=== PATIENT | female | born 1965 | race Caucasian/White ===

== ENCOUNTER 2018-03-11 14:08 | Emergency (ER) | payer OTHER ==
[~2018-03-11] VITALS: Ht 177.8 cm; Wt 68.5 kg
== END 2018-03-11 15:11 | disposition home or self-care (01) ==
LOC: FSED 14:08
DX: L02.413 Cutaneous abscess of right upper limb (principal); I10 Essential (primary) hypertension
CPT/HCPCS: 99283

== ENCOUNTER 2018-06-06 13:35 | Emergency (ER) | payer OTHER ==
[~2018-06-06] VITALS: Ht 177.8 cm; Wt 68.5 kg
--- OUTSIDE RECORDS SUMMARY | 2018-06-06 13:38 | XMS REPORT ---
[facility] Address Unknown Phone Unavailable Care Team Providers Care Career Development Coordinator Name Role Phone NIKITA CURRY Unavailable Unavailable Problems This patient has no known problems. Allergies, Adverse Reactions, Alerts This patient has no known allergies or adverse reactions. Medications This patient has no known medications. Results Test Description Test Time Test Comments Text Results Atomic Results Result Comments HEMOGLOBIN A1C 2018-01-11 13:30:00 HEMOGLOBIN A1C (BEAKER) (test aiem=106) 5.6 % 4.3-6.1 TSH/FREE T4 IF [id number] 12:38:00* Test Item Value Reference Range Comments THYROID STIMULATING HORMONE (BEAKER) (test ofev=152) 1.06 uIU/mL 0.35-4.94 CBC W/PLT COUNT & AUTO [id number] 12:06:00* Test Item Value Reference Range Comments WHITE BLOOD CELL COUNT (BEAKER) (test urtg=739) 5.5 K/ L 3.5-10.5 RED BLOOD CELL COUNT (BEAKER) (test yrmv=597) 4.65 M/ L 3.93-5.22 HEMOGLOBIN (BEAKER) (test jyjw=123) 14.8 GM/DL 11.2-15.7 HEMATOCRIT (BEAKER) (test rdft=695) 46.6 % 34.1-44.9 MEAN CORPUSCULAR VOLUME (BEAKER) (test gsvy=061) 100.2 fL 79.4-94.8 MEAN CORPUSCULAR HEMOGLOBIN (BEAKER) (test ujcm=603) 31.8 pg 25.6-32.2 MEAN CORPUSCULAR HEMOGLOBIN CONC (BEAKER) (test knto=360) 31.8 GM/DL 32.2-35.5 RED CELL DISTRIBUTION WIDTH (BEAKER) (test trjs=220) 12.5 % 11.7-14.4 PLATELET COUNT (BEAKER) (test hzdp=847) 184 K/CU MM 150-450 MEAN PLATELET VOLUME (BEAKER) (test gnjq=428) 9.2 fL 9.4-12.3 NUCLEATED RED BLOOD CELLS (BEAKER) (test eojw=352) 0 /100 WBC 0-0 NEUTROPHILS RELATIVE PERCENT (BEAKER) (test ndbf=361) 43 % LYMPHOCYTES RELATIVE PERCENT (BEAKER) (test ovrt=686) 45 % MONOCYTES RELATIVE PERCENT (BEAKER) (test kadq=155) 6 % EOSINOPHILS RELATIVE PERCENT (BEAKER) (test iddh=422) 5 % BASOPHILS RELATIVE PERCENT (BEAKER) (test xvhf=040) 1 % NEUTROPHILS ABSOLUTE COUNT (BEAKER) (test mduo=580) 2.37 K/ L 1.56-6.13 LYMPHOCYTES ABSOLUTE COUNT (BEAKER) (test zkyo=366) 2.47 K/ L 1.18-3.74 MONOCYTES ABSOLUTE COUNT (BEAKER) (test dnzw=828) 0.32 K/ L 0.24-0.36 EOSINOPHILS ABSOLUTE COUNT (BEAKER) (test fahr=138) 0.25 K/ L 0.04-0.36 BASOPHILS ABSOLUTE COUNT (BEAKER) (test nsyc=472) 0.04 K/ L 0.01-0.08 IMMATURE GRANULOCYTES-RELATIVE PERCENT (BEAKER) (test qjkc=1591) 0 % 0-1 LIPID [id number] 12:01:00* Test Item Value Reference Range Comments TRIGLYCERIDES (BEAKER) (test thzx=723) 71 mg/dL CHOLESTEROL (BEAKER) (test mtsw=603) 187 mg/dL HDL CHOLESTEROL (BEAKER) (test ewzg=167) 65 mg/dL LDL CHOLESTEROL CALCULATED (BEAKER) (test zubf=299) 108 mg/dL Triglyceride Reference Range: Low Risk <150 Borderline 150-199 High Risk 200-499 Very High Risk >=500Cholesterol Reference Range: Low Risk <200 Borderline 200-239 High Risk >240HDL Cholesterol Reference Range: Low Risk >=60 High Risk <40LDL Cholesterol Reference Range: Optimal <100 Near Optimal 100-129 Borderline 130-159 High 160-189 Very High >=190 COMPREHENSIVE METABOLIC [id number] 12:01:00* Test Item Value Reference Range Comments TOTAL PROTEIN (BEAKER) (test qeis=071) 7.8 gm/dL 6.0-8.3 ALBUMIN (BEAKER) (test bchg=0049) 4.3 g/dL 3.5-5.0 ALKALINE PHOSPHATASE (BEAKER) (test thqx=294) 72 U/L 40-150 BILIRUBIN TOTAL (BEAKER) (test rmpd=893) 0.5 mg/dL 0.2-1.2 SODIUM (BEAKER) (test hjuo=280) 137 meq/L 136-145 POTASSIUM (BEAKER) (test pech=346) 4.4 meq/L 3.5-5.1 CHLORIDE (BEAKER) (test ndol=625) 102 meq/L 98-107 CO2 (BEAKER) (test ghoa=185) 29 meq/L 22-29 BLOOD UREA NITROGEN (BEAKER) (test rbcu=273) 18 mg/dL 7-21 CREATININE (BEAKER) (test auoc=848) 0.84 mg/dL 0.57-1.25 GLUCOSE RANDOM (BEAKER) (test ubom=890) 75 mg/dL 70-105 CALCIUM (BEAKER) (test sfbk=343) 9.4 mg/dL 8.4-10.2 AST (SGOT) (BEAKER) (test uopv=425) 21 U/L 5-34 ALT (SGPT) (BEAKER) (test fuaf=433) 14 U/L 6-55 EGFR (BEAKER) (test awbb=3294) 71 mL/min/1.73 sq m ESTIMATED GFR IS NOT ACCURATE CREATININE CLEARANCE IN PREDICTING GLOMERULAR FILTRATION RATE. ESTIMATED GFR IS NOT APPLICABLE FOR DIALYSIS PATIENTS. URINALYSIS W/ [id number] 11:48:00* Test Item Value Reference Range Comments COLOR (BEAKER) (test gsin=933) Yellow CLARITY (BEAKER) (test vufs=751) Clear SPECIFIC GRAVITY UA (BEAKER) (test yilh=026) 1.015 1.001-1.035 PH UA (BEAKER) (test uiqw=356) 5.5 5.0-8.0 PROTEIN UA (BEAKER) (test xwrd=957) Negative Negative GLUCOSE UA (BEAKER) (test zhcc=069) Negative Negative KETONES UA (BEAKER) (test rqzd=993) Negative Negative BILIRUBIN UA (BEAKER) (test zqlb=440) Negative Negative BLOOD UA (BEAKER) (test qmba=405) Negative Negative NITRITE UA (BEAKER) (test ltnb=928) Negative Negative LEUKOCYTE ESTERASE UA (BEAKER) (test tjrp=351) Negative Negative UROBILINOGEN UA (BEAKER) (test chsb=011) 0.2 mg/dL 0.2-1.0 RBC UA (BEAKER) (test nryn=206) < /HPF WBC UA (BEAKER) (test xgve=023) 1 /HPF BACTERIA (BEAKER) (test tion=869) Many SQUAMOUS EPITHELIAL (BEAKER) (test tehi=728) 4 /HPF SOURCE(BEAKER) (test rlvs=6262)
--- OUTSIDE RECORDS SUMMARY | 2018-06-06 13:38 | XMS REPORT | Continuity of Care Document ---
Author [facility] Address Unknown Phone Unavailable Problems Problem Status Onset Date Classification Date Reported Comments Source ULTRASOUND Active 01/07/2016 [facility] UNK Active 12/21/2015 [facility] DX: SCREENING Active 12/21/2015 [facility] DX: SCREENING Active 12/21/2015 [facility] Elevated glucose Active Diagnosis 12/04/2015 [facility] Abnormal WBC count Active Diagnosis 12/04/2015 [facility] Body mass index of 24.0 to 24.9 in adult Active Problem 02/15/2016 [facility] Serum potassium elevated Active Diagnosis 12/04/2015 [facility] Prediabetes Active Problem 02/15/2016 [facility] Onychomycosis Active Diagnosis 12/20/2015 [facility] Special screening for malignant neoplasms, colon Active Diagnosis 11/19/2015 [facility] Encounter for screening mammogram for malignant neoplasm of breast Active Diagnosis 11/19/2015 [facility] Medications Medication Details Route Status Patient Instructions Ordering Provider Order Date Source Albuterol 0.833 MG/ML / Ipratropium Newton 0.167 MG/ML Inhalant Solution 3 mL, NEB, ONCE, 0 Refill(s) Active 01/06/2016 [facility] Albuterol 0.833 MG/ML / Ipratropium [place] 0.167 MG/ML Inhalant Solution 3 mL, Route: NEB, Drug Form: SOLN, Dosing Weight 78.864, kg, ONCE, STAT, Start date: 01/06/16 8:06:00 CDT, Stop date: 01/06/16 8:06:00 CDTNotes: (Same as: Karolina) Inactive 01/06/2016 [facility] Sodium Chloride 0.154 MEQ/ML Injectable Solution 1,000 mL, Rate: 25 ml/hr, Infuse over: 40 hr, Route: IV, Dosing Weight 78.864 kg, Total Volume: 1,000, Start date: 01/06/16 8:06:00 CDT, Duration: 30 day, Stop date: 02/05/16 8:05:00 CDT Inactive 01/06/2016 [facility] Ibuprofen =2 tab, PO, PRN, 0 Refill(s) Active 01/04/2016 [facility] Lamisil 1 tablet Orally Active 250 MG Orally Once a day Brant 11/16/2015 [facility] Allergies, Adverse Reactions, Alerts Substance Category Reaction Severity Reaction type Status Date Reported Comments Source N.K.D.A. Adverse Reaction Info Not Available Adverse Reaction Active 12/17/2015 [facility] Immunizations Immunization Date Given Site Status Last Updated Comments Source Results Order Name Results Value Reference Range Date Interpretation Comments Source Breast Complete [facility] US Breast Complete [facility] US - BREAST COMPLETE [facility]ERELLE US ULTRASOUND OF BOTH BREASTS AND BOTH AXILLA: 01/20/2016 CLINICAL: Dense breasts abnormal mammogram, mammographic nodule/density. Comparison is made to exam dated: 12/31/2015 mammogram - [facility]. Color flow and real-time ultrasound of both breasts and both axilla were performed. Reed scale images of the real-time examination were reviewed. For both breasts, all 4 quadrants, the retroareolar region and axilla are evaluated in this exam. There is a small benign cyst left breast in the sub-areolar depth that is an incidental finding. There also is a small benign cyst right breast at 9 o'clock that is an incidental finding. No abnormalities were seen sonographically in either axilla. IMPRESSION: BENIGN There is no suspicious sonographic abnormality seen in the right breast to correspond with the initial mammographic density which is consistent with normal fibroglandular tissue. There is no sonographic evidence of malignancy. Return to annual mammogram screening schedule is recommended. The results were reviewed with the patient. SUMMARY: The patient would likely benefit from 3D tomosynthesis screening mammograms given her breast density, which can be performed at [facility]. Bea brandont/:01/20/2016 13:16:20 Mastic Worker: Kia Stock, [facility] This exam was dictated and interpreted by [id number] for [facility]. letter sent: Normal exam Ultrasound BI-RADS: 2 Benign 01/20/2016 - - Read by: Bea Goodwin MD Dictated Date/time: 01/20/16 13:16 Electronically Signed by: Bea Goodwin MD 01/20/16 13:16 FINAL REPORT [facility] URINE CHEM U Preg Negative (01/04/16 8:56 AM) Negative 01/04/2016 [facility] Digital Mammo Screening [facility]lle MA Digital Mammo Screening Cherelle MA - DIGITAL MAMMO SCREENING CHERELLE MA BILATERAL DIGITAL SCREENING MAMMOGRAM WITH CAD: 12/31/2015 CLINICAL: Other Screening Mammogram. Current study was evaluated with a Computer Aided Detection (CAD) system. Exam is read without the benefit of comparison films. Patient states their prior mammogram was performed over 10 years ago and are no longer available. The tissue of both breasts is heterogeneously dense, which could obscure detection of small masses. There are benign appearing calcifications in both breasts. There is a focal asymmetry in the right breast at 11 o'clock posterior depth. No other significant masses, calcifications, or other findings are seen in either breast. IMPRESSION: INCOMPLETE: NEEDS ADDITIONAL IMAGING EVALUATION The focal asymmetry in the right breast is indeterminate. An ultrasound is recommended unless previous films are received and show no significant interval change. Bilateral breast ultrasound is recommended due to breast density. SUMMARY: Prior mammograms would be of added benefit to document shellfish checker stability. This aids in establishing benignity. The patient should make additional efforts to locate their prior exams. An addendum will be made if additional films are provided. Tyra Dale M.D. ap/:01/04/2016 10:29:08 Mastic Worker: Susana Kay, [facility] This exam was dictated and interpreted by [id number] for [facility]. letter sent: Additional Imaging Mammogram BI-RADS: 0 Indeterminate 12/31/2015 - - Read by: Tyra Dale MD Dictated Date/time: 01/04/16 10:29 Electronically Signed by: Tyra Dale MD 01/04/16 10:29 FINAL REPORT [facility] Vital Signs Vital Sign Value Date Comments Source Respitory Rate 13 01/06/2016 [facility] Systolic (mm Hg) 121 01/06/2016 [facility] Diastolic (mm Hg) 75 01/06/2016 [facility] Respitory Rate 18 01/06/2016 [facility] Systolic (mm Hg) 126 01/06/2016 [facility] Diastolic (mm Hg) 78 01/06/2016 [facility] Respitory Rate 13 01/06/2016 [facility] Systolic (mm Hg) 132 01/06/2016 [facility] Diastolic (mm Hg) 78 01/06/2016 [facility] Heart Rate 59 01/04/2016 [facility] Temperature Oral (F) 97.6 F 01/04/2016 [facility] Weight 78.864 01/04/2016 [facility] BMI Calculated 24.95 01/04/2016 [facility] Height 177.8 cm 01/04/2016 [facility] Weight 167 12/17/2015 [facility] Height 70 12/17/2015 [facility] Heart Rate 66 12/17/2015 [facility] Diastolic (mm Hg) 82 12/17/2015 [facility] Systolic (mm Hg) 118 12/17/2015 [facility] Weight 171 11/16/2015 [facility] Height 70 11/16/2015 [facility] Diastolic (mm Hg) 72 11/16/2015 [facility] Systolic (mm Hg) 118 11/16/2015 [facility] Encounters Location Location Details Encounter Type Encounter Number Reason For Visit Attending Provider ADM Date DC Date Status Source [facility] [id number] 11/16/2015 11/16/2015 [facility] [id number] 11/16/2015 11/16/2015 [facility] [id number] 11/16/2015 11/16/2015 [facility] [id number] 11/16/2015 11/16/2015 [facility] Needs call back from Medical Staff [id number] 12/03/2015 12/03/2015 [facility] Needs call back from Medical Staff [id number] 12/03/2015 12/03/2015 [facility] Needs call back from Medical Staff [id number] 12/03/2015 12/03/2015 [facility] 4 week follow up [id number] 12/17/2015 12/17/2015 [facility] 4 week follow up [id number] 12/17/2015 12/17/2015 [facility] [id number] Paula Rosario 12/31/2015 01/01/2016 [facility]patient [id number] Femi Hays 01/06/2016 01/06/2016 [facility] [id number] 01/13/2016 01/13/2016 [facility] [id number] Paula Abraham 01/20/2016 01/21/2016 [facility] Procedures Procedure Code Date Perfomer Comments Source Operation [id number] [facility]
--- OUTSIDE RECORDS SUMMARY | 2018-06-06 13:38 | XMS REPORT | Clinical Summary ---
Author Author [facility] Address Unknown Phone Unavailable Care Team Providers Care Interior Painter Name Role Phone Pcp, No PCP Unavailable Allergies No Known Allergies Medications End Date Status Medication Sig Dispensed Refills Start Date Active ibuprofen (ADVIL,MOTRIN) Take 400 mg 0 200 MG tablet by mouth every 6 (six) hours as needed for Pain. Active melatonin 1 mg Tab Take 1 mg by 0 mouth every night as needed. 05/13/2019 Active fosinopril-hydrochlorothi Take 1 tablet 90 tablet 0 azide (MONOPRIL-HCT) by mouth 8 10-12.5 mg per tablet daily. 01/30/2018 Discontinued fosinopril-hydrochlorothi Take 1 tablet 30 tablet 11 azide (MONOPRIL-HCT) by mouth 8 10-12.5 mg per tablet daily. 05/13/2018 Discontinued fosinopril-hydrochlorothi Take 1 tablet 90 tablet 0 azide (MONOPRIL-HCT) by mouth 8 10-12.5 mg per tablet daily. 03/11/2018 sulfamethoxazole-trimetho Take 1 tablet 14 tablet 0 prim (BACTRIM DS) 800-160 (160 mg of 8 mg per tablet trimethoprim total) by mouth 2 (two) times daily for 7 days smx-tmp DS (BACTRIM) 800-160 mg tabs (1tab q12 D10). 03/14/2018 traMADol (ULTRAM) 50 mg Take 1 tablet 30 tablet 0 tablet (50 mg total) 8 by mouth every 6 (six) hours as needed for Pain for up to 10 days. Max Daily Amount: 200 mg Active Problems Not on file Encounters Care Team Description Date Type Specialty Parhizgar, Sundar, MD 05/13/2018 Refill Cardiology Roshan Camargo MD Abscess (Primary Dx) 03/04/2018 Emergency Emergency Medicine Sundar Brunson MD 01/30/2018 Refill Cardiology Sundar Brunson MD Annual physical exam (Primary Dx); Essential hypertension 01/11/2018 Office Visit Cardiology Sundar Brunson MD 01/11/2018 Telephone Cardiology after 06/05/2017 Social History Date Tobacco Use Types Packs/Day Years Used Quit: 10/2017 Former Smoker 10 Smokeless Tobacco: Never Used Alcohol Use Drinks/Week oz/Week Comments Yes occasional Sex Assigned at Date Recorded Not on file Industry Job Start Date Occupation Not on file Not on file Not on file Travel End Travel History Travel Start No recent travel history available. Last Filed Vital Signs Time Taken Vital Sign Reading 03/04/2018 2:20 PM CDT Blood Pressure 162/79 03/04/2018 2:20 PM CDT Pulse 65 03/04/2018 2:20 PM CDT Temperature 36.1 C (97 F) 03/04/2018 2:20 PM CDT Respiratory Rate 20 03/04/2018 12:31 PM CDT Oxygen Saturation 99% - Inhaled Oxygen - Concentration 03/04/2018 12:31 PM CDT Weight 70.3 kg (155 lb) 03/04/2018 12:31 PM CDT Height 177.8 cm (5' 10") 03/04/2018 12:31 PM CDT Body Mass Index 22.24 Plan of Treatment Health Maintenance Due Date Last Done Comments INFLUENZA VACCINE 04/01/2018 Procedures Comments Procedure Name Priority Date/Time Associated Diagnosis [place] DRAIN SKIN ABSCESS Routine 03/05/2018 SIMPLE 9:02 AM CDT CBC W/PLT COUNT & AUTO STAT 01/11/2018 Annual physical exam DIFFERENTIAL 11:32 AM CDT URINALYSIS W/ MICROSCOPIC STAT 01/11/2018 Annual physical exam 11:32 AM CDT CBC W/PLT COUNT & AUTO STAT 01/11/2018 Annual physical exam DIFFERENTIAL 11:32 AM CDT COMPREHENSIVE METABOLIC STAT 01/11/2018 Annual physical exam PANEL 11:32 AM CDT LIPID PANEL Routine 01/11/2018 Annual physical exam 11:32 AM CDT HEMOGLOBIN A1C Routine 01/11/2018 Annual physical exam 11:32 AM CDT TSH/FREE T4 IF INDICATED Routine 01/11/2018 Annual physical exam 11:32 AM CDT after 06/05/2017 Results * INCISION AND DRAINAGE (03/05/2018 9:02 AM CDT) Narrative Performed At Roshan Camargo MD 03/05/20189:02 AM Incision/Drainage Date/Time: 03/04/2018 1:15 PM Performed by: BYRON EDWARDS Authorized by: ROSHAN CAMARGO Consent: Verbal consent obtained. Risks and benefits: risks, benefits and alternatives were discussed Consent given by: patient Patient understanding: patient states understanding of the procedure being performed Patient consent: the patient's understanding of the procedure matches consent given Procedure consent: procedure consent matches procedure scheduled Relevant documents: relevant documents present and verified Test results: test results available and properly labeled Site marked: the operative site was marked Imaging studies: imaging studies available Patient identity confirmed: verbally with patient and arm band Time out: Immediately prior to procedure a "time out" was called to verify the correct patient, procedure, equipment, product support specialist and site/side marked as required. Type: abscess Body area: upper extremity Location details: right arm Anesthesia: local infiltration (lido 2%) Anesthesia: Local Anesthetic: lidocaine 2% without epinephrine Sedation: Patient sedated: no Scalpel size: 11 Needle gauge: 20 Incision type: single straight Complexity: simple Drainage: purulent andbloody Drainage amount: moderate Wound treatment: wound left open Packing material: 1/4 in iodoform gauze Patient tolerance: Patient tolerated the procedure well with no immediate complications Immediate Post-Procedure Note Date/Time: 03/04/2018 1:55 PM Assistants to the procedure: Other (Comment) (Nessa Edwards CRACKER OFF/ Dr. Roshan Camargo) Pre-procedure diagnosis: Abscess Post-procedure diagnosis: Abscess Procedures Performed: Incision/Drainage Specimens removed: None Estimated blood loss (mL): None Complications: None Type of anesthesia: None Grafts or Implants: None * TSH/Free T4 If Indicated (01/11/2018 11:32 AM CDT) TSH 1.06 0.35 - 4.94 uIU/mL [facility] Specimen Blood Performing Organization Address City/State/Zipcode Phone Number [facility] [address] [place] [address] [facility] * CBC with platelet count + automated diff (01/11/2018 11:32 AM CDT) WBC 5.5 3.5 - 10.5 K/L [facility] RBC 4.65 3.93 - 5.22 M/L [facility] Hemoglobin 14.8 11.2 - 15.7 GM/DL [facility] Hematocrit 46.6 (H) 34.1 - 44.9 % [facility] MCV 100.2 (H) 79.4 - 94.8 fL [facility] MCH 31.8 25.6 - 32.2 pg [facility] MCHC 31.8 (L) 32.2 - 35.5 GM/DL [facility] RDW 12.5 11.7 - 14.4 % [facility] Platelets 184 150 - 450 K/CU MM [facility] MPV 9.2 (L) 9.4 - 12.3 fL [facility] nRBC 0 0 - 0 /100 WBC [facility] % Neutros 43 % [facility] % Lymphs 45 % [facility] % Monos 6 % [facility] % Eos 5 % [facility] % Baso 1 % [facility] # Neutros 2.37 1.56 - 6.13 K/L [facility] # Lymphs 2.47 1.18 - 3.74 K/L [facility] # Monos 0.32 0.24 - 0.36 K/L [facility] # Eos 0.25 0.04 - 0.36 K/L [facility] # Baso 0.04 0.01 - 0.08 K/L [facility] Immature 0 0 - 1 % [facility] Granulocytes-Relative [facility] Specimen Blood Performing Organization Address City/[facility]/Zipcode Phone Number [facility] [address] [place] [address] [facility] * Urinalysis w/ Microscopic (01/11/2018 11:32 AM CDT) Color, UA Yellow [facility] Clarity, UA Clear [facility] Specific [place], UA 1.015 1.001 - 1.035 [facility] pH, UA 5.5 5.0 - 8.0 [facility] Protein, UA Negative Negative [facility] Glucose, UA Negative Negative [facility] Ketones, UA Negative Negative [facility] Bilirubin, UA Negative Negative [facility] Blood, UA Negative Negative [facility] Nitrite, UA Negative Negative [facility] Leukocytes, UA Negative Negative [facility] Urobilinogen, UA 0.2 0.2 - 1.0 mg/dL [facility] RBC, UA <1 /HPF [facility] WBC, UA 1 /HPF [facility] Bacteria, UA Many [facility] Squam Epithel, UA 4 /HPF [facility] Specimen Source [facility] Specimen Urine Performing Organization Address City/[facility]/Zipcode Phone Number [facility] [address] [place], [place] [id number] [facility] * Hemoglobin A1c (01/11/2018 11:32 AM CDT) Hemoglobin A1C 5.6 4.3 - 6.1 % [facility] Specimen Blood Performing Organization Address [facility] Phone Number [facility] [address] [place] [address] [facility] * Lipid panel (01/11/2018 11:32 AM CDT) Triglycerides 71 mg/dL [facility] Cholesterol 187 mg/dL [facility] HDL 65 mg/dL [facility] LDL Calculated 108 mg/dL [facility] Specimen Blood Narrative Performed At Triglyceride Reference Range: [facility] Low Risk <150 [facility] [id number] High Risk 200-499 Very High Risk>=500 Cholesterol Reference Range: Low Risk <200 [id number] High Risk>240 HDL Cholesterol Reference Range: Low Risk >=60 High Risk <40 LDL Cholesterol Reference Range: Optimal<100 Near [id number] Very High >=190 Performing Organization Address City/[facility] Phone Number [facility] [address] [place] [address] [facility] * Comprehensive metabolic panel (01/11/2018 11:32 AM CDT) Protein, Total 7.8 6.0 - 8.3 gm/dL [facility] Albumin 4.3 3.5 - 5.0 g/dL [facility] Alkaline Phosphatase 72 40 - 150 U/L [facility] Total Bilirubin 0.5 0.2 - 1.2 mg/dL [facility] Sodium 137 136 - 145 meq/L [facility] Potassium 4.4 3.5 - 5.1 meq/L [facility] Chloride 102 98 - 107 meq/L [facility] CO2 29 22 - 29 meq/L [facility] BUN 18 7 - 21 mg/dL [facility] Creatinine 0.84 0.57 - 1.25 mg/dL [facility] Glucose 75 70 - 105 mg/dL [facility] Calcium 9.4 8.4 - 10.2 mg/dL [facility] AST 21 5 - 34 U/L [facility] ALT 14 6 - 55 U/L [facility] EGFR 71Comment: ESTIMATED GFR IS mL/min/1.73 sq m [facility] NOT ACCURATE CREATININE [facility] CLEARANCE IN PREDICTING GLOMERULAR FILTRATION RATE. ESTIMATED GFR IS NOT APPLICABLE FOR DIALYSIS PATIENTS. Specimen Blood Performing Organization Address City/State/Zipcode Phone Number [facility] [address] [place] [address] [facility] after 06/05/2017 Insurance Payer Benefit Subscriber ID Type Phone Address Plan / Group [employer]R xxxxxxxxxxx SUPER[employer]
--- OUTSIDE RECORDS SUMMARY | 2018-06-06 13:38 | XMS REPORT ---
Author Author Addy Guo Organization [employer] Address Unknown Phone Unavailable Care Team Providers Care Caddy Master Name Role Phone Addy Guo CP Unavailable Encounters Encounter Location Date WWE/[facility]W [facility] November 16, 2015 Needs call back from Medical Staff [facility] December 03, 2015 Problems Problem Type Condition ICD-9 Code Onset Dates Condition Status Assessment Elevated glucose R73.09 Active Assessment Abnormal WBC count D72.9 Active Problem Body mass index (BMI) of 24.0 to 24.9 in adult Z68.24 Active Assessment Serum potassium elevated E87.5 Active Social History Social History Element Qualifiers Date Reported children . 1 son November 16, 2015 Tobacco Use: . Are you a: former smoker Quit 1 month ago, How many packs per day? less than a half pack, How many years have you smoked? 5-10 November 16, 2015 Use of recreational / street drugs? . Answer: Former User, What drugs did you use? marijuana, cocaine, Frequency: Daily November 16, 2015 Smoke Exposure: . Second Hand Smoke Exposure: No November 16, 2015 Do you have pets? . Status: Yes, Type: dog(s), cat(s) November 16, 2015 Marital Status: . November 16, 2015 Caffeine intake? . Status: Yes, What type: Coffee, Soft Drinks November 16, 2015 Do you exercise? . Answer: Yes, Type: walking November 16, 2015 Do you drink alcohol? . Status: Yes, Type: Wine, Beer, Liquor, How often? Daily November 16, 2015 Occupation: . [employer], self employed November 16, 2015 Summary Purpose [employer] Submission
--- OUTSIDE RECORDS SUMMARY | 2018-06-06 13:38 | XMS REPORT | Summary of Care ---
Author Author [facility] Organization [facility] Address Unknown Phone Unavailable Encounter HQ Piedad_gabriella(FIN) [id number] Date(s): 01/20/16 - 01/20/16 [facility] [address] [place] [address]- [phone] Discharge Disposition: Home or Self Care Attending Physician: Paula Rosario DO Referring Physician: Paula Rosario DO Vital Signs No data available for this section Problem List No data available for this section Allergies, Adverse Reactions, Alerts Substance Reaction Severity Status NKDA Active Medications No data available for this section Results No data available for this section Immunizations No data available for this section Procedures Procedure Date Related Diagnosis Body Site Operation Social History Social History Type Response Substance Abuse Use: Current. Type: Marijuana. Recreational Drug Route: Inhaled. Alcohol Current, Previous treatment: None. Smoking Status Former smoker; Type: Cigarettes; Concerns about tobacco use in household: No; Exposure to Tobacco Smoke None; Cigarette Smoking Last 365 Days Yes; Reg Smoking Cessation Counseling No Assessment and Plan No data available for this section
--- OUTSIDE RECORDS SUMMARY | 2018-06-06 13:38 | XMS REPORT | Summary of Care ---
Author Author [facility] Organization [facility] Address Unknown Phone Unavailable Encounter JOHNSON Sigala(SHANTANU) [id number] Date(s): 01/06/16 - 01/06/16 [facility] [address] [place] [address]- Discharge Disposition: Home Attending Physician: Femi Hays MD Referring Physician: Femi Hays MD Vital Signs 1 2 3 Most recent to oldest [Reference Range]: 177.8 cm (01/04/16 8:49 AM) Height 97.6 DegF (01/04/16 8:49 AM) Temperature Oral [96.4-99.1 DegF] 121/75 mmHg (01/06/16 10:30 AM) 126/78 mmHg (01/06/16 10:15 AM) 132/78 mmHg (01/06/16 10:00 AM) Blood Pressure [90-140/60-90 mmHg] 13 BRMIN *LOW* (01/06/16 10:30 AM) 18 BRMIN (01/06/16 10:15 AM) 13 BRMIN *LOW* (01/06/16 10:00 AM) Respiratory Rate [14-20 BRMIN] 59 bpm *LOW* (01/04/16 8:49 AM) Peripheral Pulse Rate [60-100 bpm] 78.864 kg (01/04/16 8:49 AM) Weight 24.95 m2 (01/04/16 8:49 AM) Body Mass Index Problem List No data available for this section Allergies, Adverse Reactions, Alerts Substance Reaction Severity Status NKDA Active Medications albuterol-ipratropium 2.5-0.5 mg inhalation solution 3 mL, Route: NEB, Drug Form: SOLN, Dosing Weight 78.864, kg, ONCE, STAT, Start d ate: 01/06/16 8:06:00 CDT, Stop date: 01/06/16 8:06:00 CDT Notes: (Same as: Karolina) Start Date: 01/06/16 Stop Date: 01/06/16 Status: Ordered albuterol-ipratropium 2.5-0.5 mg inhalation solution 3 mL, NEB, ONCE, 0 Refill(s) Start Date: 01/06/16 Status: Ordered ibuprofen =2 tab, PO, PRN, 0 Refill(s) Start Date: 01/04/16 Status: Ordered sodium chloride 0.9% 1000 ml INJ 1,000 mL 1,000 mL, Rate: 25 ml/hr, Infuse over: 40 hr, Route: IV, Dosing Weight 78.864 kg , Total Volume: 1,000, Start date: 01/06/16 8:06:00 CDT, Duration: 30 day, Stop date: 02/05/16 8:05:00 CDT Start Date: 01/06/16 Stop Date: 01/06/16 Status: Discontinued Results URINE CHEM Most recent to 1 oldest [Reference Range]: U Preg [Negative] Negative (01/04/16 8:56 AM) Immunizations No data available for this section [...]
--- OUTSIDE RECORDS SUMMARY | 2018-06-06 13:38 | XMS REPORT | Summary of Care ---
Author Author [facility] Organization [facility] Address Unknown Phone Unavailable Encounter HQ Encntr_alias(FIN) [id number] Date(s): 12/31/15 - 12/31/15 [facility] [address] [place] [address]- Discharge Disposition: Home Attending Physician: Paula Rosario DO Referring Physician: Addy Guo Vital Signs No data available for this section Problem List No data available for this section Allergies, Adverse Reactions, Alerts Substance Reaction Severity Status NKDA Active Medications No data available for this section Results No data available for this section Immunizations No data available for this section Procedures No data available for this section Social History No data available for this section Assessment and Plan No data available for this section
--- OUTSIDE RECORDS SUMMARY | 2018-06-06 13:38 | XMS REPORT ---
Author Author Paula Leal [facility] [employer] Address Unknown Phone Unavailable Care Team Providers Care Pyrotechnist Name Role Phone Paula Leal Unavailable Encounters Encounter Location Date [facility] January 13, 2016 WWE/[facility] November 16, 2015 Needs call back from Medical Staff [facility] December 03, 2015 4 week follow up [facility] December 17, 2015 Problems Problem Type Condition ICD-9 Code Onset Dates Condition Status Problem Body mass index (BMI) of 24.0 to 24.9 in adult Z68.24 Active Problem Prediabetes R73.09 Active Social History Social History Element Qualifiers Date Reported children . 1 son December 17, 2015 Tobacco Use: . Are you a: former smoker Quit 1 month ago, How many packs per day? less than a half pack, How many years have you smoked? 5-10 December 17, 2015 Use of recreational / street drugs? . Answer: Former User, What drugs did you use? marijuana, cocaine, Frequency: Daily December 17, 2015 Smoke Exposure: . Second Hand Smoke Exposure: No December 17, 2015 Do you have pets? . Status: Yes, Type: dog(s), cat(s) December 17, 2015 Marital Status: . December 17, 2015 Caffeine intake? . Status: Yes, What type: Coffee, Soft Drinks December 17, 2015 Do you exercise? . Answer: Yes, Type: walking December 17, 2015 Do you drink alcohol? . Status: Yes, Type: Wine, Beer, Liquor, How often? Daily December 17, 2015 Occupation: . [employer], 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, 2015 Summary Purpose [employer] Submission
--- OUTSIDE RECORDS SUMMARY | 2018-06-06 13:38 | XMS REPORT ---
Author Author Addy Guo Organization [employer] Address Unknown Phone Unavailable Care Team Providers Care Meal Grinder Tender Name Role Phone Addy Guo CP Unavailable Allergies, Adverse Reactions, Alerts Substance Reaction Event Type N.K.D.A. Info Not Available Non Drug Allergy Encounters Encounter Location Date WWE/FBW [facility] November 16, 2015 Needs call back from Medical Staff [facility] December 03, 2015 4 week follow up [facility] December 17, 2015 Problems Problem Type Condition ICD-9 Code Onset Dates Condition Status Problem Body mass index (BMI) of 24.0 to 24.9 in adult Z68.24 Active Assessment Prediabetes R73.09 Active Problem Prediabetes R73.09 Active Assessment Onychomycosis B35.1 Active Medications Medication Code System Code Instructions Start Date End Date Status Dosage Lamisil MEDISPAN [address]-98 250 MG Orally Once a day November 16, 2015 Feb 14, 2016 Active 1 tablet Social History Social History Element Qualifiers Date [...] trailer repair, 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, 2015 Family history Qualifier Description Comment Date Reported Maternal Grandmother Comment not available December 17, 2015 Paternal Grandmother Comment not available December 17, 2015 Siblings Comment not available December 17, 2015 Maternal Grandfather Comment not available December 17, 2015 Children Comment not available December 17, 2015 Father Comment not available December 17, 2015 Paternal Grandfather Comment not available December 17, 2015 Mother alive Comment not available December 17, 2015 Other: Comment not available December 17, 2015 Vital Signs Date/Time: December 17, 2015 Weight 167 lbs Height 70 in Cardiac Monitoring Heart Rate 66 /min Blood Pressure Diastolic 82 mm Hg Blood Pressure Systolic 118 mm Hg Summary Purpose [employer]ClinicalWorks Submission
--- OUTSIDE RECORDS SUMMARY | 2018-06-06 13:38 | XMS REPORT ---
Author Author Addy Guo Organization [employer] Address Unknown Phone Unavailable Care Team Providers Care Sales Clerk Food Name Role Phone Addy Guo CP Unavailable Allergies, Adverse Reactions, Alerts Substance Reaction Event Type N.K.D.A. Info Not Available Non Drug Allergy Encounters Encounter Location Date WWE/FBW [facility] November 16, 2015 Problems Problem Type Condition ICD-9 Code Onset Dates Condition Status Assessment Encounter for routine gynecological examination Z01.419 Active Assessment Special screening for malignant neoplasms, colon Z12.11 Active Problem Body mass index (BMI) of 24.0 to 24.9 in adult Z68.24 Active Assessment Onychomycosis B35.1 Active Assessment Encounter for screening mammogram for malignant neoplasm of breast Z12.31 Active Assessment Body mass index (BMI) of 24.0 to 24.9 in adult Z68.24 Active Medications Medication Code System Code Instructions Start Date End Date Status Dosage Lamisil MEDISPAN [address]-89 250 MG Orally Once a day November [...] trailer repair, 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
[2018-06-06] MEDS ORDERED: LIDOCAINE 2%/ EPINEPHRINE 20ML MDV INJ STA (14:47)
[2018-06-06 19:31] VITALS: BP 155/90
== END 2018-06-06 15:40 | disposition home or self-care (01) ==
LOC: FSED 13:35
DX: L02.416 Cutaneous abscess of left lower limb (principal); I10 Essential (primary) hypertension
CPT/HCPCS: 82948; 99284; J2001

== ENCOUNTER 2018-06-10 14:19 | Emergency (ER) | payer OTHER ==
[~2018-06-10] VITALS: Ht 177.8 cm; Wt 68.5 kg
--- OUTSIDE RECORDS SUMMARY | 2018-06-10 14:21 | XMS REPORT | Clinical Summary ---
Author Author AMPARO [facility] Address Unknown Phone Unavailable Care Team Providers Care Sales Inspector Name Role Phone Pcp, No PCP Unavailable [...] Essential hypertension 01/11/2018 Office Visit Cardiology Sundar Brusnon MD 01/11/2018 Telephone Cardiology after 06/09/2017 Social History Date Tobacco Use Types Packs/Day [...] Comments Procedure Name Priority Date/Time Associated Diagnosis ID DRAIN SKIN ABSCESS Routine 03/05/2018 SIMPLE 9:02 [...] Annual physical exam 11:32 AM CDT after 06/09/2017 Results * INCISION AND DRAINAGE (03/05/2018 9:02 [...] to verify the correct patient, procedure, equipment, software support engineer and site/side marked as required. Type: abscess [...] to the procedure: Other (Comment) (Nessa Edwards URBAN SOCIOLOGIST/ Dr. Roshan Camargo) Pre-procedure diagnosis: Abscess Post-procedure diagnosis: Abscess Procedures Performed: Incision/Drainage Specimens removed: None Estimated blood loss (mL): None Complications: None Type of anesthesia: None Grafts or Implants: None * TSH/Free T4 If Indicated (01/11/2018 11:32 AM CDT) TSH 1.06 0.35 - 4.94 uIU/mL [facility] Specimen Blood Performing Organization Address City/State/Zipcode Phone Number [facility] [address] [place] [address] MED[facility]ENTER * CBC with platelet count + automated diff (01/11/2018 11:32 AM CDT) WBC 5.5 3.5 - 10.5 K/L [facility] RBC 4.65 3.93 - 5.22 M/L [facility] Hemoglobin 14.8 11.2 - 15.7 GM/DL [facility] Hematocrit 46.6 (H) 34.1 - 44.9 % [facility] MCV 100.2 (H) 79.4 - 94.8 fL [facility] MCH 31.8 25.6 - 32.2 pg [facility] MCHC 31.8 (L) 32.2 - 35.5 GM/DL [facility] RDW 12.5 11.7 - 14.4 % [facility] Platelets 184 150 - 450 K/CU MM [facility] MPV 9.2 (L) 9.4 - 12.3 fL [facility] nRBC 0 0 - 0 /100 WBC [facility] % Neutros 43 % [facility] % Lymphs 45 % [facility] % Monos 6 % [facility] % Eos 5 % [facility] % Baso 1 % [facility] # Neutros 2.37 1.56 - 6.13 K/L [facility] # Lymphs 2.47 1.18 - 3.74 K/L [facility] # Monos 0.32 0.24 - 0.36 K/L [facility] # Eos 0.25 0.04 - 0.36 K/L [facility] # Baso 0.04 0.01 - 0.08 K/L [facility] Immature 0 0 - 1 % [facility] Granulocytes-Relative [facility] Specimen Blood Performing Organization Address City/[facility]/Zipcode Phone Number [facility] [address] [place] [address] MEDICAL CENTER * Urinalysis w/ Microscopic (01/11/2018 11:32 AM CDT) Color, UA Yellow [facility] Clarity, UA Clear [facility] Specific [place], UA 1.015 1.001 - 1.035 [facility] pH, UA 5.5 5.0 - 8.0 [facility] Protein, UA Negative Negative [facility] Glucose, UA Negative Negative [facility] Ketones, UA Negative Negative [facility] Bilirubin, UA Negative Negative [facility] Blood, UA Negative Negative [facility] Nitrite, UA Negative Negative [facility] Leukocytes, UA Negative Negative [facility] Urobilinogen, UA 0.2 0.2 - 1.0 mg/dL [facility] RBC, UA <1 /HPF [facility] WBC, UA 1 /HPF [facility] Bacteria, UA Many [facility] Squam Epithel, UA 4 /HPF [facility] Specimen Source [facility] Specimen Urine Performing Organization Address City/[facility]/Zipcode Phone Number [facility] [address], [place] [id number] [facility] * Hemoglobin A1c (01/11/2018 11:32 AM CDT) Hemoglobin A1C 5.6 4.3 - 6.1 % [facility] Specimen Blood Performing Organization Address [facility] Phone Number [facility] [address] [place] [address] [facility] * Lipid panel (01/11/2018 11:32 AM CDT) Triglycerides 71 mg/dL [facility] Cholesterol 187 mg/dL [facility] HDL 65 mg/dL [facility] LDL Calculated 108 mg/dL [facility] Specimen Blood Narrative Performed At Triglyceride Reference Range: [facility] Low Risk <150 [facility] [id number] High Risk 200-499 Very High Risk>=500 Cholesterol Reference Range: Low Risk <200 [id number] High Risk>240 HDL Cholesterol Reference Range: Low Risk >=60 High Risk <40 LDL Cholesterol Reference Range: Optimal<100 Near [id number] [id number] Very High >=190 Performing Organization Address City/[facility] Phone Number [facility] [address] [place] [address] [facility] * Comprehensive metabolic panel (01/11/2018 11:32 AM CDT) Protein, Total 7.8 6.0 - 8.3 gm/dL [facility] Albumin 4.3 3.5 - 5.0 g/dL [facility] Alkaline Phosphatase 72 40 - 150 U/L [facility] Total Bilirubin 0.5 0.2 - 1.2 mg/dL [facility] Sodium 137 136 - 145 meq/L [facility] Potassium 4.4 3.5 - 5.1 meq/L [facility] Chloride 102 98 - 107 meq/L [facility] CO2 29 22 - 29 meq/L [facility] BUN 18 7 - 21 mg/dL [facility] Creatinine 0.84 0.57 - 1.25 mg/dL [facility] Glucose 75 70 - 105 mg/dL [facility] Calcium 9.4 8.4 - 10.2 mg/dL [facility] AST 21 5 - 34 U/L [facility] ALT 14 6 - 55 U/L [facility] EGFR 71Comment: ESTIMATED GFR IS mL/min/1.73 sq m [facility] NOT ACCURATE CREATININE [facility] CLEARANCE IN PREDICTING GLOMERULAR FILTRATION RATE. ESTIMATED GFR IS NOT APPLICABLE FOR DIALYSIS PATIENTS. Specimen Blood Performing Organization Address City/State/Zipcode Phone Number [facility] [address] [place] [address] [facility] after 06/09/2017 Insurance Payer Benefit Subscriber ID Type Phone Address Plan / Group [employer] xxxxxxxxxxx SUPERIOR
== END 2018-06-10 15:59 | disposition home or self-care (01) ==
LOC: FSED 14:19
DX: Z48.00 Encounter for change or removal of nonsurgical wound dressing (principal); L02.91 Cutaneous abscess, unspecified
CPT/HCPCS: 99283

== ENCOUNTER 2018-10-16 16:51 | Inpatient (IN) | payer OTHER ==
[~2018-10-16] VITALS: Ht 177.8 cm; Wt 68.3 kg
--- OUTSIDE RECORDS SUMMARY | 2018-10-16 16:54 | XMS REPORT | Continuity of Care Document ---
Author Author [facility] Address Unknown Phone Unavailable Problems Problem Status Onset Date Classification Date Reported Comments Source ULTRASOUND Active 01/07/2016 [facility] DX: SCREENING Active 12/21/2015 [facility] UNK Active 12/21/2015 [facility] DX: SCREENING Active 12/21/2015 [facility] Elevated glucose Active Diagnosis 12/04/2015 [facility] Abnormal WBC count Active Diagnosis 12/04/2015 [facility] Body mass index of 24.0 to 24.9 in adult Active Problem 02/15/2016 [facility] Serum potassium elevated Active Diagnosis 12/04/2015 [facility] Prediabetes Active Problem 02/15/2016 [facility] Special screening for malignant neoplasms, colon Active Diagnosis 11/19/2015 [facility] Onychomycosis Active Diagnosis 12/20/2015 [facility] Encounter for screening mammogram for malignant neoplasm of breast Active Diagnosis 11/19/2015 [facility] Medications Medication Details Route Status Patient Instructions Ordering Provider Order Date Source Albuterol 0.833 MG/ML / Ipratropium [place] 0.167 MG/ML Inhalant Solution 3 mL, NEB, ONCE, 0 Refill(s) Active 01/06/2016 [facility] Albuterol 0.833 MG/ML / Ipratropium [place] 0.167 MG/ML Inhalant Solution 3 mL, Route: NEB, Drug Form: SOLN, Dosing Weight 78.864, kg, ONCE, STAT, Start date: 01/06/16 8:06:00 CDT, Stop date: 01/06/16 8:06:00 CDTNotes: (Same as: Karolina) Inactive 01/06/2016 [facility] Sodium Chloride 0.154 MEQ/ML Injectable Solution 1,000 mL, Rate: 25 ml/hr, Infuse over: 40 hr, Route: IV, Dosing Weight 78.864 kg, Total Volume: 1,000, Start date: 01/06/16 8:06:00 CDT, Duration: 30 day, Stop date: 02/05/16 8:05:00 CDT Inactive 01/06/2016 [facility] Ibuprofen =2 tab, PO, PRN, 0 Refill(s) Active 01/04/2016 [facility] Lamisil 1 tablet Orally Active 250 MG Orally Once a day Brant 11/16/2015 [facility] Allergies, Adverse [...] made to exam dated: 12/31/2015 mammogram - [facility]. Color flow and real-time ultrasound of both [...] breast density, which can be performed at [facility]. Bea brandont/:01/20/2016 13:16:20 Metal Tube Cutter: Kia Stock, [facility] This exam was dictated and interpreted by [id number] for [facility]. letter sent: Normal exam Ultrasound BI-RADS: 2 Benign 01/20/2016 - - Read by: Bea Goodwin MD Dictated Date/time: 01/20/16 13:16 Electronically Signed by: Bea Goodwin MD 01/20/16 13:16 FINAL REPORT [facility] URINE CHEM U Preg Negative (01/04/16 8:56 AM) Negative 01/04/2016 [facility] Digital Mammo Screening Cherelle MA Digital Mammo [...] would be of added benefit to document longshore equipment operator stability. This aids in establishing benignity. The patient should make additional efforts to locate their prior exams. An addendum will be made if additional films are provided. Tyra Dale M.D. ap/:01/04/2016 10:29:08 Metal Tube Cutter: Susana Kay, [facility] This exam was dictated and interpreted by [id number] for [facility]. letter sent: Additional Imaging Mammogram BI-RADS: 0 Indeterminate 12/31/2015 - - Read by: Tyra Dale MD Dictated Date/time: 01/04/16 10:29 Electronically Signed by: Tyra Dale MD 01/04/16 10:29 FINAL REPORT [facility] Vital Signs Vital Sign Value Date Comments Source Respitory Rate 13 01/06/2016 [facility] Systolic (mm Hg) 121 01/06/2016 [facility] Diastolic (mm Hg) 75 01/06/2016 [facility] Respitory Rate 18 01/06/2016 [facility] Systolic (mm Hg) 126 01/06/2016 [facility] Diastolic (mm Hg) 78 01/06/2016 [facility] Respitory Rate 13 01/06/2016 [facility] Systolic (mm Hg) 132 01/06/2016 [facility] Diastolic (mm Hg) 78 01/06/2016 [facility] Heart Rate 59 01/04/2016 [facility] Temperature Oral (F) 97.6 F 01/04/2016 [facility] Weight 78.864 01/04/2016 [facility] BMI Calculated 24.95 01/04/2016 [facility] Height 177.8 cm 01/04/2016 [facility] Weight 167 12/17/2015 [facility] Systolic (mm Hg) 118 11/16/2015 [facility] Encounters Location Location Details Encounter Type Encounter Number Reason For Visit Attending Provider ADM Date DC Date Status Source [facility] [id number] 11/16/2015 11/16/2015 [facility] [id number] 11/16/2015 11/16/2015 [facility] [id number] 11/16/2015 11/16/2015 [facility] [id number] 11/16/2015 11/16/2015 [facility] Needs call back from Medical Staff [id number] 12/03/2015 12/03/2015 [facility] Needs call back from Medical Staff [id number] 12/03/2015 12/03/2015 [facility] Needs call back from Medical Staff [id number] 12/03/2015 12/03/2015 [facility] 4 week follow up [id number] 12/17/2015 12/17/2015 [facility] 4 week follow up [id number] 12/17/2015 12/17/2015 [facility] Outpatient [id number] Paula Rosario 12/31/2015 01/01/2016 [facility] [id number] Femi Hays 01/06/2016 01/06/2016 [facility] [id number] 01/13/2016 01/13/2016 [facility] Outpatient [id number] Paula Abraham 01/20/2016 01/21/2016 [facility] Procedures Procedure Code Date Perfomer Comments Source Operation [id number] [facility]
--- OUTSIDE RECORDS SUMMARY | 2018-10-16 16:54 | XMS REPORT | Clinical Summary ---
Author Author AMPARO [facility] Address Unknown Phone Unavailable Care Team Providers Care Stitch Burnisher Name Role Phone Pcp, No PCP Unavailable [...] Sundar Brunson MD 01/11/2018 Telephone Cardiology after 10/15/2017 Social History Date Tobacco Use Types Packs/Day [...] Comments Procedure Name Priority Date/Time Associated Diagnosis [place] DRAIN SKIN ABSCESS Routine 03/05/2018 SIMPLE 9:02 [...] Annual physical exam 11:32 AM CDT after 10/15/2017 Results * INCISION AND DRAINAGE (03/05/2018 9:02 [...] to verify the correct patient, procedure, equipment, application support engineer and site/side marked as required. [...] to the procedure: Other (Comment) (Nessa Edwards MEDICAL SALES CONSULTANT/ Dr. Roshan Camargo) Pre-procedure diagnosis: Abscess Post-procedure diagnosis: Abscess Procedures Performed: Incision/Drainage Specimens removed: None Estimated blood loss (mL): None Complications: None Type of anesthesia: None Grafts or Implants: None * TSH/Free T4 If Indicated (01/11/2018 11:32 AM CDT) TSH 1.06 0.35 - 4.94 uIU/mL [facility] Specimen Blood Performing Organization Address City/State/Zipcode Phone Number [facility] [address] [place] [address] MEDICAL CENTER * CBC with platelet count + automated diff (01/11/2018 11:32 AM CDT) WBC 5.5 3.5 - 10.5 K/L [facility] RBC 4.65 3.93 - 5.22 M/L [facility] Hemoglobin 14.8 11.2 - 15.7 GM/DL [facility] Hematocrit 46.6 (H) 34.1 - 44.9 % [facility] MCV 100.2 (H) 79.4 - 94.8 fL [facility] MCH 31.8 25.6 - 32.2 pg [facility] MCHC 31.8 (L) 32.2 - 35.5 GM/DL [facility] RDW 12.5 11.7 - 14.4 % [facility] Platelets 184 150 - 450 K/CU MM [facility] MPV 9.2 (L) 9.4 - 12.3 fL [facility] nRBC 0 0 - 0 /100 WBC [facility] % Neutros 43 % [facility] % Lymphs 45 % [facility] % Monos 6 % [facility] % Eos 5 % [facility] % Baso 1 % [facility] # Neutros 2.37 1.56 - 6.13 K/L [facility] # Lymphs 2.47 1.18 - 3.74 K/L [facility] # Monos 0.32 0.24 - 0.36 K/L [facility] # Eos 0.25 0.04 - 0.36 K/L [facility] # Baso 0.04 0.01 - 0.08 K/L [facility] Immature 0 0 - 1 % [facility] Granulocytes-Relative [facility] Specimen Blood Performing Organization Address City/[facility]/Zipcode Phone Number [facility] [address] [place] [address] MEDICAL CENTER * Urinalysis w/ Microscopic (01/11/2018 11:32 AM CDT) Color, UA Yellow [facility] Clarity, UA Clear [facility] Specific [place], UA 1.015 1.001 - 1.035 [facility] pH, UA 5.5 5.0 - 8.0 [facility] Protein, UA Negative Negative [facility] Glucose, UA Negative Negative [facility] Ketones, UA Negative Negative [facility] Bilirubin, UA Negative Negative [facility] Blood, UA Negative Negative [facility] Nitrite, UA Negative Negative [facility] Leukocytes, UA Negative Negative [facility] Urobilinogen, UA 0.2 0.2 - 1.0 mg/dL [facility] RBC, UA <1 /HPF [facility] WBC, UA 1 /HPF [facility] Bacteria, UA Many [facility] Squam Epithel, UA 4 /HPF [facility] Specimen Source [facility] Specimen Urine Performing Organization Address City/[facility]/Zipcode Phone Number [facility] [address], [place] [id number] [facility] * Hemoglobin A1c (01/11/2018 11:32 AM CDT) Hemoglobin A1C 5.6 4.3 - 6.1 % [facility] Specimen Blood Performing Organization Address [facility] Phone Number [facility] [address] [place] [address] [facility] * Lipid panel (01/11/2018 11:32 AM CDT) Triglycerides 71 mg/dL [facility] Cholesterol 187 mg/dL [facility] HDL 65 mg/dL [facility] LDL Calculated 108 mg/dL [facility] Specimen Blood Narrative Performed At Triglyceride Reference Range: [facility] Low Risk <150 [facility] [id number] High Risk 200-499 Very High Risk>=500 Cholesterol Reference Range: Low Risk <200 [id number] High Risk>240 HDL Cholesterol Reference Range: Low Risk >=60 High Risk <40 LDL Cholesterol Reference Range: Optimal<100 Near [id number] Fxsu182-124 Very High >=190 Performing Organization Address City/[facility] Phone Number [facility] [address] [place] [address] [facility] * Comprehensive metabolic panel (01/11/2018 11:32 AM CDT) Protein, Total 7.8 6.0 - 8.3 gm/dL [facility] Albumin 4.3 3.5 - 5.0 g/dL [facility] Alkaline Phosphatase 72 40 - 150 U/L [facility] Total Bilirubin 0.5 0.2 - 1.2 mg/dL [facility] Sodium 137 136 - 145 meq/L [facility] Potassium 4.4 3.5 - 5.1 meq/L [facility] Chloride 102 98 - 107 meq/L [facility] CO2 29 22 - 29 meq/L [facility] BUN 18 7 - 21 mg/dL [facility] Creatinine 0.84 0.57 - 1.25 mg/dL [facility] Glucose 75 70 - 105 mg/dL [facility] Calcium 9.4 8.4 - 10.2 mg/dL [facility] AST 21 5 - 34 U/L [facility] ALT 14 6 - 55 U/L [facility] EGFR 71Comment: ESTIMATED GFR IS mL/min/1.73 sq m [facility] NOT ACCURATE CREATININE [facility] CLEARANCE IN PREDICTING GLOMERULAR FILTRATION RATE. ESTIMATED GFR IS NOT APPLICABLE FOR DIALYSIS PATIENTS. Specimen Blood Performing Organization Address City/State/Zipcode Phone Number [facility] [address] [place] [address] [facility] after 10/15/2017 Insurance Payer Benefit Subscriber ID Type Phone Address Plan / Group [employer] xxxxxxxxxxx SUPERIOR
[2018-10-16] MEDS ORDERED: PIPER-TAZ 3.375 GM 50 ML IV ONE (17:15)
[2018-10-16] MEDS ORDERED: VANCOMYCIN 1GM/NS 250 ML 250 ML IV ONE (17:15)
--- NOTE | 2018-10-16 17:28 | Diagnostic Imaging Report ---
Radiographs of the left middle finger - 3 views HISTORY: Pain. Trauma. Infection COMPARISON: None available. FINDINGS: Bones: No acute displaced fracture. Osseous alignment is within normal limits. Joints: Scattered degenerative change. No osseous erosion. Soft tissues: Soft tissue swelling about the third digit. IMPRESSION: Soft tissue swelling about the third digit. No radiopaque foreign body. No osseous erosion Signed by: Dr. Abdirizak Silver M.D. on 10/16/2018 5:24 PM
[2018-10-16] MEDS: SODIUM CHLORIDE 0.9% 1000ML 1,000 ML IV SCH (17:39)
[2018-10-16] MEDS ORDERED: SODIUM CHLORIDE FLUSH 10 ML SYR INJ PRN (17:45)
--- OUTSIDE RECORDS SUMMARY | 2018-10-16 17:54 | XMS REPORT | Clinical Summary ---
Author Author [facility] Address Unknown Phone Unavailable Care Team Providers Care Senior Financial Analyst Name Role Phone Pcp, No PCP Unavailable [...] Comments Procedure Name Priority Date/Time Associated Diagnosis AL DRAIN SKIN ABSCESS Routine 03/05/2018 SIMPLE 9:02 [...] to verify the correct patient, procedure, equipment, user support analyst supervisor and site/side marked as required. Type: abscess [...] to the procedure: Other (Comment) (Nessa Edwards PORTAL ARCHITECT/ Dr. Roshan Camargo) Pre-procedure diagnosis: Abscess Post-procedure diagnosis: Abscess Procedures Performed: Incision/Drainage Specimens removed: None Estimated blood loss (mL): None Complications: None Type of anesthesia: None Grafts or Implants: None * TSH/Free T4 If Indicated (01/11/2018 11:32 AM CDT) TSH 1.06 0.35 - 4.94 uIU/mL [facility] Specimen Blood Performing Organization Address City/State/Zipcode Phone Number [facility] [address] [place] [address] [facility] * CBC with platelet count + automated diff (01/11/2018 11:32 AM CDT) WBC 5.5 3.5 - 10.5 K/L [facility] RBC 4.65 3.93 - 5.22 M/L [facility] Hemoglobin 14.8 11.2 - 15.7 GM/DL [facility] Hematocrit 46.6 (H) 34.1 - 44.9 % [facility] MCV 100.2 (H) 79.4 - 94.8 fL [facility] MCH 31.8 25.6 - 32.2 pg [facility] MCHC 31.8 (L) 32.2 - 35.5 GM/DL [facility] RDW 12.5 11.7 - 14.4 % [facility] Platelets 184 150 - 450 K/CU MM [facility] MPV 9.2 (L) 9.4 - 12.3 fL [facility] nRBC 0 0 - 0 /100 WBC [facility] % Neutros 43 % [facility] % Lymphs 45 % [facility] % Monos 6 % [facility] % Eos 5 % [facility] % Baso 1 % [facility] # Neutros 2.37 1.56 - 6.13 K/L [facility] # Lymphs 2.47 1.18 - 3.74 K/L [facility] # Monos 0.32 0.24 - 0.36 K/L [facility] # Eos 0.25 0.04 - 0.36 K/L [facility] # Baso 0.04 0.01 - 0.08 K/L [facility] Immature 0 0 - 1 % Granulocytes-Relative [facility] Specimen Blood Performing Organization Address City/[facility]/Zipcode Phone Number [facility] [address] [place] [address] MEDICAL [facility]ENTER * Urinalysis w/ Microscopic (01/11/2018 11:32 AM CDT) Color, UA Yellow [facility] Clarity, UA Clear [facility] Specific Coats, UA 1.015 1.001 - 1.035 [facility] pH, UA 5.5 5.0 - 8.0 [facility] Protein, UA Negative Negative [facility] Glucose, UA Negative Negative [facility] Ketones, UA Negative Negative [facility] Bilirubin, UA Negative Negative [facility] Blood, UA Negative Negative [facility] Nitrite, UA Negative Negative [facility] Leukocytes, UA Negative Negative [facility] Urobilinogen, UA 0.2 0.2 - 1.0 mg/dL [facility] RBC, UA <1 /HPF [facility] WBC, UA 1 /HPF [facility] Bacteria, UA Many [facility] Squam Epithel, UA 4 /HPF [facility] Specimen Source [facility] Specimen Urine Performing Organization Address City/[facility]/Zipcode Phone Number [facility] [address] [place], [place] [id number] [facility] * Hemoglobin A1c (01/11/2018 11:32 AM CDT) Hemoglobin A1C 5.6 4.3 - 6.1 % [facility] Specimen Blood Performing Organization Address [facility] Phone Number [facility] [address] [place] [address] [facility] * Lipid panel (01/11/2018 11:32 AM CDT) Triglycerides 71 mg/dL [facility] Cholesterol 187 mg/dL [facility] HDL 65 mg/dL [facility] LDL Calculated 108 mg/dL [facility] Specimen Blood Narrative Performed At Triglyceride Reference Range: Low Risk <150 [facility] [id number] High Risk 200-499 Very High Risk>=500 Cholesterol Reference Range: Low Risk <200 [id number] High Risk>240 HDL Cholesterol Reference Range: Low Risk >=60 High Risk <40 LDL Cholesterol Reference Range: Optimal<100 Near [id number] Very High >=190 Performing Organization Address City/[facility] Phone Number [facility] [address] [place] [address] [facility] * Comprehensive metabolic panel (01/11/2018 11:32 AM CDT) Protein, Total 7.8 6.0 - 8.3 gm/dL [facility] Albumin 4.3 3.5 - 5.0 g/dL [facility] Alkaline Phosphatase 72 40 - 150 U/L [facility] Total Bilirubin 0.5 0.2 - 1.2 mg/dL [facility] Sodium 137 136 - 145 meq/L [facility] Potassium 4.4 3.5 - 5.1 meq/L [facility] Chloride 102 98 - 107 meq/L [facility] CO2 29 22 - 29 meq/L [facility] BUN 18 7 - 21 mg/dL [facility] Creatinine 0.84 0.57 - 1.25 mg/dL [facility] Glucose 75 70 - 105 mg/dL [facility] Calcium 9.4 8.4 - 10.2 mg/dL [facility] AST 21 5 - 34 U/L [facility] ALT 14 6 - 55 U/L [facility] EGFR 71Comment: ESTIMATED GFR IS mL/min/1.73 sq m NOT ACCURATE CREATININE [facility] CLEARANCE IN PREDICTING GLOMERULAR FILTRATION RATE. ESTIMATED GFR IS NOT APPLICABLE FOR DIALYSIS PATIENTS. Specimen Blood Performing Organization Address City/State/Zipcode Phone Number [facility] [address] [place] [address] [facility] after 10/15/2017 Insurance Payer Benefit Subscriber ID Type Phone Address Plan / Group [employer] xxxxxxxxxxx [employer]
--- NOTE | 2018-10-16 17:59 | NUR ---
[facility] CALLED FOR TRANSPORT ETA 35-45 MIN
[2018-10-16] MEDS: MORPHINE SULFATE 2 MG/ML SYR 1ML IV PRN ×3 (18:12→22:39)
[2018-10-16] MEDS: ONDANSETRON HCL INJ 2MG/ML 2ML 2 MG/ML VIAL IV PRN (18:12)
--- NOTE | 2018-10-16 18:40 | NUR ---
[facility] here for transport to main hospital
[2018-10-16 18:51] VITALS: BP 170/88
--- NOTE | 2018-10-16 19:01 | NUR ---
Received patient from [facility], settled in the room, a/oxe, Left middle digit very swollen, Dr. Shaffer has been consulted and called. Patient is NPO at this time, IV line established and IV fluids running to LAC 20, patient was just medicated before arriving, states pain is well controlled. Will monitor.
[2018-10-16] MEDS ORDERED: MORPHINE SULFATE INJ 4 MG/ML INJ 1ML ONE (22:37)
[2018-10-17] VITALS (9 sets, daily range): BP systolic 138–163; BP diastolic 74–80
[2018-10-17] MEDS: SODIUM CHLORIDE 0.9% 1000ML 1,000 ML IV SCH ×3 (01:39→17:57)
[2018-10-17] MEDS ORDERED: MORPHINE SULFATE INJ 4 MG/ML INJ 1ML ONE (02:17)
[2018-10-17] MEDS: MORPHINE SULFATE 2 MG/ML SYR 1ML IV PRN (02:22)
[2018-10-17] MEDS: MORPHINE SULFATE INJ 4 MG/ML INJ 1ML IV PRN ×3 (06:15→20:47)
[2018-10-17] MEDS ORDERED: BACITRACIN 50,000 UNIT VIAL ONE (11:06)
[2018-10-17] MEDS ORDERED: MUPIROCIN 2% OINT 22 GM TUBE ONE (11:06)
[2018-10-17] MEDS ORDERED: BUPIVACAINE HCL 0.5% INJ 30 ML VIAL INJ ONE (11:06)
--- NOTE | 2018-10-17 11:38 | NUR ---
Patient alert and responsive, VSS and pains managed, signed consent for I/D this morning and picked up for procedure.
[2018-10-17] MEDS ORDERED: HYDRALAZINE HCL 20 MG/ML VIAL ONE (12:35)
[2018-10-17] MEDS ORDERED: FENTANYL CITRATE/PF 100MCG/2 ML INJ ONE ×2 (12:49→14:21)
[2018-10-17] MEDS ORDERED: PROPOFOL IV EMULSION 10 MG/ML 20 ML VIAL ONE (12:50)
[2018-10-17] MEDS ORDERED: SEVOFLURANE INHAL SOLN 250 ML PEN BTL ONE (12:50)
[2018-10-17] MEDS ORDERED: DEXAMETHASONE SOD PHOS INJ 4 MG/ML VIAL ONE (12:50)
[2018-10-17] MEDS ORDERED: LIDOCAINE HCL 2% LOCAL INJ 5 ML SDV VIAL INJ ONE (12:50)
[2018-10-17] MEDS ORDERED: ONDANSETRON HCL INJ 2MG/ML 2ML 2 MG/ML VIAL ONE (12:50)
--- NOTE | 2018-10-17 14:19 | NUR ---
Patient returned for having procedure done, I/D to left middle finger, dressing in place, established in the room, IV fluids running, no N/V reported, medicated for pain, call light within reach and will monitor.
[2018-10-17] MEDS ORDERED: MIDAZOLAM HCL 2 MG/2 ML VIAL ONE (14:21)
[2018-10-17] MEDS: ONDANSETRON HCL INJ 2MG/ML 2ML 2 MG/ML VIAL IV PRN (14:22)
--- NOTE | 2018-10-17 20:22 | Operative Report ---
DATE OF PROCEDURE: 10/17/2018 SURGEON: Fredy Baumann MD PREOPERATIVE DIAGNOSIS: Acute lymphangitis, left long finger. POSTOPERATIVE DIAGNOSIS: Purulent flexor tenosynovitis, left long finger. PROCEDURE: Drainage of flexor tendon sheath, left long finger. ANESTHESIA: General. HISTORY: The patient is a 53-year-old female, who was admitted to the emergency room last night after sustaining an injury to the left long finger, which now has purulent drainage from it. The risks, benefits, and alternatives of treatment were discussed with the patient. She is prepared to undergo the procedure as outlined. DESCRIPTION OF PROCEDURE: The patient was marked preoperatively in the holding area. She was brought to the operating theater after the induction of adequate general anesthesia, she was prepped and draped in a supine position. A time-out was performed. The left upper extremity was elevated for 3 to 4 minutes and then a tourniquet was inflated to a pressure of 250 mmHg. The maximum draining site appears to be at the level of the middle phalanx on the radial aspect of the DIP joint. This area was then cultured for aerobic and anaerobic studies. Midlateral incision was then marked out from the DIP joint to the PIP joint. The incision was made through the skin and subcutaneous tissue. Venous tributaries were controlled with bipolar cautery. There was a copious amount of purulent exudate that was encountered in the subcutaneous space. The dissection then continues onto the volar aspect adjacent to the flexor tendon sheath and there was noted to be a large amount of purulent exudate emanating from the area of the flexor tendon sheath of the proximal phalanx. For this reason, the incision was then extended proximally from the PIP joint along the mid lateral aspect of the proximal phalanx towards the MP joint. The incision was made through the skin and subcutaneous tissues. Venous tributaries were controlled with bipolar cautery. With space widely opened, the flexor tendon sheath was incised and the sheath was copiously irrigated until no more purulent exudate was noted. At this point, debridement of the superficial tissues, which appeared to be devitalized at the level of the DIP joint is done sharply. A 0.25 inch packing was then placed within the flexor tendon sheath in the subcutaneous recess of the wound and then the tissues were loosely approximated with 5-0 nylon in an interrupted horizontal mattress fashion over the packing. The tourniquet was deflated. The fingers pinked up nicely and the wound was noted to be hemostatic. Bactroban ointment, Xeroform gauze and a sterile dressing were applied. The patient tolerated the procedure well, was brought to recovery room in satisfactory condition and then readmitted for her hospital bed for further care and treatment. MD DAREN Abernathy/CARIE /[id number]
--- NOTE | 2018-10-17 20:22 | Consultation ---
DATE OF CONSULTATION: Consultation is requested by Dr. Phillip Nielsen. CHIEF COMPLAINT: Left long finger infection. HISTORY OF PRESENT ILLNESS: The patient is a 53-year-old left-hand dominant female, who states that approximately 7-10 days ago while doing a home construction project, she accidentally hit her left long finger with a hammer. She states that over the course of several days the finger became more painful and swollen and within the past 24-48 hours, she noticed purulent exudate draining from the finger. She was seen at [facility] and then transferred to the main ER and admitted and kept n.p.o. after midnight for presumed surgery this morning. PAST MEDICAL HISTORY: Negative. PAST SURGICAL HISTORY: Noncontributory. ALLERGIES: SHE DENIES ALLERGIES. PHYSICAL EXAMINATION: On pertinent physical exam, she is afebrile and vital signs are stable. The pertinent physical exam of the left upper extremity shows there to be a largely fusiform infected left long finger with swelling extending to the adjacent index and ring fingers, primarily along the dorsal aspect of the hand. There is purulent drainage from the radial aspect of the DIP joint with fluctuance extending proximally along the middle phalanx and the proximal phalanx as well. The radiographs taken in the emergency room last night do not show any acute bony abnormality. IMPRESSION: Acute lymphangitis, possible flexor tenosynovitis. PLAN: The patient will be taken to the OR this morning and will have a drainage procedure performed. Thank you for allowing me to participate in the care your patient. Fredy Baumann MD ER/MODL /[id number]
[2018-10-18] VITALS (8 sets, daily range): BP systolic 106–157; BP diastolic 56–76
[2018-10-18] MEDS: SODIUM CHLORIDE 0.9% 1000ML 1,000 ML IV SCH ×3 (01:30→17:12)
[2018-10-18] MEDS: MORPHINE SULFATE INJ 4 MG/ML INJ 1ML IV PRN ×3 (01:46→14:40)
--- NOTE | 2018-10-18 07:08 | NUR ---
Received patient this morning, alert and responsive, in bed during rounds, and pains well managed, no resp distress, fluids running as ordered, dressing in place to left middle finger, will monitor as call light within reach
[2018-10-18] MEDS: ONDANSETRON HCL INJ 2MG/ML 2ML 2 MG/ML VIAL IV PRN ×2 (07:45→14:40)
[2018-10-18] MEDS: LISINOPRIL 2.5 MG TAB PO SCH (07:59)
--- NOTE | 2018-10-18 08:11 | NUR ---
Patient alert and responsive, rounds by surgeon, removed dressing to finger and applying soaks at this time, wound consult in place and orders for wound dressing change in place, will monitor
[2018-10-18] MEDS: PIPER-TAZ 3.375 GM 50 ML IV SCH ×2 (12:08→17:12)
[2018-10-18] MEDS: VANCOMYCIN 1GM/NS 250 ML 250 ML IV SCH (12:38)
[2018-10-19] MEDS: MORPHINE SULFATE INJ 4 MG/ML INJ 1ML IV PRN ×5 (00:16→21:37)
[2018-10-19 00:34] VITALS: BP 120/75
[2018-10-19] MEDS: VANCOMYCIN 1GM/NS 250 ML 250 ML IV SCH ×3 (00:36→23:31)
[2018-10-19] MEDS: SODIUM CHLORIDE 0.9% 1000ML 1,000 ML IV SCH ×4 (01:39→21:36)
[2018-10-19] MEDS: PIPER-TAZ 3.375 GM 50 ML IV SCH ×4 (05:14→17:16)
--- NOTE | 2018-10-19 07:05 | NUR ---
PT RESTING IN BED COMFORTABLY PT IS IN NO S.S OF DISTRESS STATES PAIN TO LEFT HAND MIDDLE FINGER AT THIS TIME IS TOLERABLE 5/10 PT IS ON IV FLUID WITH NS TO THE RIGHT AC 20 . SITE IS CLEAN AND DRY PT REMAINS ON ABX OF DIGIT INFECTION WILL CONTINUE TO MONITOR, SIDE RAILSX2, BED WHEELS LOCKED, CALL LIGHT IS WITHIN EASY REACH INSTRUCTED TO CALL FOR ASSISTANCE IF NEEDED
[2018-10-19] MEDS: MUPIROCIN 2% OINT 22 GM TUBE TOP SCH ×2 (07:57→08:36)
[2018-10-19 08:00] VITALS: BP 143/80
--- NOTE | 2018-10-19 08:00 | NUR ---
DRESSING TO THE LEFT HAND MIDDLE DIGIT CHANGED ORDERED BY MD AT THIS TIME PT TOLERATED WELL
[2018-10-19 08:01] VITALS: BP 143/80
[2018-10-19] MEDS: LISINOPRIL 2.5 MG TAB PO SCH (08:36)
--- NOTE | 2018-10-19 08:40 | NUR ---
PAGED MD Dewayne VALDESDAD REGARDING CULTURES GROWING MRSA. AWAITING FOR CALL BACK
--- NOTE | 2018-10-19 09:37 | NUR ---
CALLED REPORT TO BERTO IN [facility] 2 AT THIS TIME
--- NOTE | 2018-10-19 10:00 | NUR ---
received pt via wheelchair from [facility]. patient AAOx4, resp evne and unlabored, no acute distress noted. oriented to room and use of call light. erythema to left hand noted, elevated on 1 pillow. call light placed within reach and instructed to call for assistance. dressing to right AC PIV changed, NS @125ml/hr.
[2018-10-19 11:58] VITALS: BP 131/70
[2018-10-19 16:24] VITALS: BP 129/71
[2018-10-19 20:12] VITALS: BP 129/60
[2018-10-20] VITALS (8 sets, daily range): BP systolic 122–138; BP diastolic 63–73
[2018-10-20] MEDS: PIPER-TAZ 3.375 GM 50 ML IV SCH ×4 (01:09→22:27)
[2018-10-20] MEDS: MORPHINE SULFATE INJ 4 MG/ML INJ 1ML IV PRN ×5 (02:50→22:15)
[2018-10-20 05:23] LABS: BASOPHILS % 0.7 % (0.0-1.0); EOSINOPHILS # (AUTO) 0.4 (0.0-0.4); EOSINOPHILS % 5.9 % (0.0-6.0); HEMATOCRIT 41.3 % (34.2-44.1); HEMOGLOBIN 13.4 g/dL (12.0-16.0); LYMPHOCYTES # (AUTO) 1.7 (1.0-3.2); LYMPHOCYTES % 28.2 % (18.0-39.1); MEAN CORPUSCULAR HEMOGLOBIN 31.7 pg (28-32); MEAN CORPUSCULAR HGB CONC 32.4 g/dL (31-35); MEAN CORPUSCULAR VOLUME 97.6 fL (81-99); MONOCYTES # (AUTO) 0.4 (0.2-0.8); NEUTROPHILS # (AUTO) 3.6 (2.1-6.9); NEUTROPHILS % 57.9 % (38.7-80.0); PLATELET COUNT 213 x10e3/uL (140-360); RED BLOOD COUNT 4.23 x10e6/uL (3.6-5.1)
[2018-10-20 05:48] LABS: ANION GAP 10.1 mmol/L (8-16); BLOOD UREA NITROGEN 11 mg/dL (7-26); BUN/CREATININE RATIO 14 (6-25); CALCIUM 8.8 mg/dL (8.4-10.2); CARBON DIOXIDE 26 mmol/L (22-29); CHLORIDE 104 mmol/L (98-107); CREATININE, SERUM 0.77 mg/dL (0.57-1.11); EST GLOMERULAR FILTRATION RATE > 60 ML/MIN (60-); GLUCOSE 128 mg/dL (74-118); POTASSIUM 4.1 mmol/L (3.5-5.1); SODIUM 136 mmol/L (136-145)
[2018-10-20] MEDS: LISINOPRIL 2.5 MG TAB PO SCH (08:00)
[2018-10-20] MEDS: SODIUM CHLORIDE 0.9% 1000ML 1,000 ML IV SCH ×2 (08:00→17:39)
[2018-10-20] MEDS: MUPIROCIN 2% OINT 22 GM TUBE TOP SCH (11:52)
[2018-10-20] MEDS: VANCOMYCIN 1GM/NS 250 ML 250 ML IV SCH ×3 (11:52→23:15)
--- NOTE | 2018-10-20 19:00 | NUR ---
Report and rounds completed. Patient in bed watching TV with call light at side. Will continue to monitor.
[2018-10-20] MEDS ORDERED: DAPTOMYCIN 500mg 10ML 500 MG in SODIUM CHLORIDE 0.9% 100 ML IV SCH (20:00)
[2018-10-20] MEDS: ONDANSETRON HCL INJ 2MG/ML 2ML 2 MG/ML VIAL IV PRN (22:15)
[2018-10-21] VITALS (8 sets, daily range): BP systolic 109–161; BP diastolic 56–94
--- NOTE | 2018-10-21 01:02 | History and Physical ---
CHIEF COMPLAINT: Infection of the finger. HISTORY OF PRESENT ILLNESS: This patient is very pleasant 53-year-old female who sustained the left hand injury 2 months ago and then 2 weeks ago, she had been working in her house when hammer hit her finger accidentally resulting in a crushing injury. She did not see the emergency room she waited, but then she came to [facility] where there was redness and swelling. She was transferred here. She was seen by Dr. Guy. The patient was admitted and underwent surgery on October 17, 2018, drainage of flexor tendon sheath abscess. I was asked to see her. The patient's wound is growing MRSA. She is currently lying in bed, there is still some redness and swelling. The patient denies any history of trauma. PAST MEDICAL HISTORY: As above. PAST SURGICAL HISTORY: As above. ALLERGIES: NKA. SOCIAL HISTORY: She smokes less than a pack a day she said, very little. She also drinks little. REVIEW OF SYSTEMS: HEENT: Negative. PULMONARY: Negative. CARDIAC: Negative. : Negative. GI: Negative. SKIN: There is no other rash. PHYSICAL EXAMINATION: GENERAL: She is currently alert, oriented, does not seem to be in acute distress. VITAL SIGNS: Stable, currently afebrile. HEENT: She is not icteric. NECK: Supple. No JVD. No lymphadenopathy. No thyromegaly. CHEST: Clear bilateral. COR: S1 and S2. No S3, S4 or murmur. ABDOMEN: Soft. Bowel sounds present. No tenderness. EXTREMITIES: No edema. There is still erythema noted in the hand. There is really does not. The patient tells me she took some oral antibiotics when she came here, but it did not help. The patient came and was admitted. She was seen by Hand Surgery, underwent debridement as mentioned above. She grew MRSA. Vancomycin ILENE was 2. IMPRESSION: Tendinitis, abscess, status post debridement with MRSA . We will put her on daptomycin 6 mg/kg. We will get a PICC line. We will plan on 3 weeks of IV antibiotics. We will follow with you. MD VANESSA Plummer/CARIE /[id number]
[2018-10-21] MEDS: SODIUM CHLORIDE 0.9% 1000ML 1,000 ML IV SCH ×3 (02:05→17:39)
[2018-10-21] MEDS: MORPHINE SULFATE INJ 4 MG/ML INJ 1ML IV PRN ×5 (02:15→19:05)
--- NOTE | 2018-10-21 03:35 | NUR ---
Radiology called to notify of new order for stat CXR to check PICC placement. Will come.
[2018-10-21] MEDS: PIPER-TAZ 3.375 GM 50 ML IV SCH ×5 (03:49→21:03)
--- NOTE | 2018-10-21 04:17 | Diagnostic Imaging Report ---
EXAMINATION: CHEST XRAY LINE PLACEMENT COMPARISON: None INDICATION: ^PICC line placement ^[id number] ^[id number] DISCUSSION: Frontal view of the chest obtained at 0357 hours. HEART AND MEDIASTINUM: The cardiomediastinal silhouette is unremarkable. LINES: Right PICC line terminates in the SVC without pneumothorax. LUNGS: The lungs are well inflated and clear. No pneumonia or pulmonary edema. PLEURA: No pleural effusion or pneumothorax. BONES AND SOFT TISSUES: No focal osseous lesion. The soft tissues are normal. IMPRESSION: Right PICC line terminates in the SVC without pneumothorax. No acute cardiopulmonary process. Signed by: Dr. Amanda Goodwin MD on 10/21/2018 4:14 AM
--- NOTE | 2018-10-21 07:17 | NUR ---
Called left message with Dr Whelan for clearance to use picc line. Spoke with answering service Eugenio. Awaiting call back.
--- NOTE | 2018-10-21 07:21 | NUR ---
Spoke with Dr Whelan: CXR read: Right picc line terminates in the SVC without pneuothorax, no acute cardiopulmonary process. Order: Okay to use and draw PICC
[2018-10-21] MEDS: LISINOPRIL 2.5 MG TAB PO SCH (09:40)
[2018-10-21] MEDS: DAPTOMYCIN 500mg 10ML 500 MG in SODIUM CHLORIDE 0.9% 100 ML IV SCH (10:15)
--- NOTE | 2018-10-21 10:40 | NUR ---
CASE MANAGEMENT ASSESSMENT Gettering Operator to bedside to discuss plan of care with patient/family. CM/SW role and care transitions discussed. Anticipated discharge plan discussed along with duration of care. CM/SW discussed patients right to make decisions in care. CM/SW work hours given. Patient lives: with her ; pt states her house still under construction from [place]. They are staying in an RV in their driveway Admit/Transfer: thru ED Hospital/ER visits since last admit: 0 POA/Emergency contact: Junior Amador [phone] - cell; pt states her lost his cell phone and is in the process of getting another one. The only phone they have right now is hers [phone] Current/Previous Home Health: none PCP/Follow-up Care: states will follow up with Dr. Baumann as instructed. stated she currently does not have a PCP but is looking into getting one. Current/Previous DME: none Medications (referring to index hospitalization or the first time you were in the hospital) a. Were changes made in your medications when you were in the hospital on [date of index hospitalization]? n/a b. Did you understand the changes? n/a c. Were you able to obtain your new medications right away? n/a d. Were you able to take your medications like the doctor wanted you to? n/a e. Did the hospital give you an accurate, easy to understand list of medications when you left? 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 Name and number was also written on the patients whiteboard. Patient verbalized understanding of discussion. CM will follow-up with ongoing discharge and transition of care needs.
--- NOTE | 2018-10-21 12:30 | NUR ---
IV abx pending approval thru Dr. Whelan's office.
--- NOTE | 2018-10-21 13:30 | NUR ---
WOUND CARE CONSULTATION - INITIAL EVALUATION Patient admitted to ER for Left Hand Middle Finger Abscess/ Flexor Tenosynovitis. HX: Crushing Injury approx 2 months ago. - Dr. Alfredo guiding care for hand ulcer. - S/P Abscession 10/17/18. - Current Tx: Bactroban and Xeroform and Cover with Gauze and Light Coban Wrap Daily. - Dr. Whelan on case for IV ABX management. Wound CX: MRSA+ WBC6.13 HGB13.4 HCT41.3 NEUT%57.9 QUO339 PATIENT VISIT: Patient AAOX4, Calm and Cooperative Presents with SX incision to Left hand Middle Finger at 2nd Webspace with open area at distal aspect of incision draining moderate serosanguineous drainage. Patient verbalizes area improving. Bruising noted to proximal area of digit. Sutures in place with exception about 1cm distally. Dressing re-applied with Bactroban to base of wound followed by single layer of Xeroform gauze. Area then Covered with Gauze and secured with light Coban wrap. She tolerated procedure well with minimum discomfort. States area speeder tender to touch. Care discussed with Dr. Baumann. Continue current treatment at this time. Discharge disposition is home with home health and IV antibiotics planned for 10/22/18. Patient to follow up with Dr. Baumann at his office. IMPRESSION: Left Hand 3rd Finger - S/P Abscession with DX of Flexor Tenosynovitis. RECOMMENDATION: ( Continue Current Treatment Plan ) Left Hand 3rd Finger - S/P Abscession - - Cleanse with NS and 4x4 Gauze - Apply Bactroban and Cover with Xeroform and wrap with Gauze. Secure with Coban Wrap with light compression. Thank you for consulting with Wound Care. Addendum: 10/21/18 at 1343 by Rock Buitrago RN Amended: Links added.
[2018-10-21] MEDS: MUPIROCIN 2% OINT 22 GM TUBE TOP SCH (13:54)
--- NOTE | 2018-10-21 19:10 | NUR ---
Bedside report given to oncoming nurse. Resting in bed. No s/s of acute distress noted.
[2018-10-22 01:06] VITALS: BP 119/77
[2018-10-22] MEDS: MORPHINE SULFATE INJ 4 MG/ML INJ 1ML IV PRN ×3 (01:11→10:20)
[2018-10-22] MEDS: SODIUM CHLORIDE 0.9% 1000ML 1,000 ML IV SCH (01:11)
[2018-10-22] MEDS: PIPER-TAZ 3.375 GM 50 ML IV SCH ×2 (04:50→08:45)
[2018-10-22 06:32] VITALS: BP 121/64
[2018-10-22 07:53] VITALS: BP 122/64
[2018-10-22 08:15] VITALS: BP 122/64
[2018-10-22] MEDS: LISINOPRIL 2.5 MG TAB PO SCH (08:45)
[2018-10-22] MEDS: DAPTOMYCIN 500mg 10ML 500 MG in SODIUM CHLORIDE 0.9% 100 ML IV SCH (09:41)
[2018-10-22] MEDS: MUPIROCIN 2% OINT 22 GM TUBE TOP SCH (10:33)
[2018-10-22 11:47] VITALS: BP 137/63
--- NOTE | 2018-10-22 12:19 | NUR ---
aware patient would like rx for pain. Dr.S. Nielsen states "Have patient stop by my office to pickling machine operator rx"
--- NOTE | 2018-10-22 12:30 | NUR ---
Spoke to QUINTON Jolley. Antibiotics have been approved thru Dr. Whelan's office. Pt has an appointment tomorrow at 11am. [address] [facility] [address] [place] [address] Information was given to pt.
[2018-10-22] MEDS ORDERED: ONDANSETRON HCL 4 MG ORAL DISINTEGRATING TAB PO PRN (15:15)
--- NOTE | 2018-10-22 15:40 | NUR ---
Taken via wheelchair to personal car. AAOX4 to time, person, place, situation. Respirations even and unlabored. Dressing to Right PICC line clean, dry, and intact. Dressing to left middle finger clean, dry, and intact. Discharge instructions and all personal belongings taken with patient. Reminded patient to machine pecan picker rx at 's office. Voiced understanding.
== END 2018-10-22 15:53 | disposition home or self-care (01) | DRG 501 ==
LOC: FSED 16:51 → ERHOLD 17:41 → INTOOBSV 17:41 → OBSVTOIN 17:44 → MED/SURG 18:52 → MED/SURG2 10-19 09:59
PROC: 0L980ZX Drainage of Left Hand Tendon, Open Approach, Diagnostic (ICD-10-PCS; principal; 2018-10-17 12:00)
PROC: 02HV33Z Insertion of Infusion Device into Superior Vena Cava, Percutaneous Approach (ICD-10-PCS; 2018-10-21)
PROC: B548ZZA Ultrasonography of Superior Vena Cava, Guidance (ICD-10-PCS; 2018-10-21)
DX: M65.842 Other synovitis and tenosynovitis, left hand (principal); L03.114 Cellulitis of left upper limb; M65.042 Abscess of tendon sheath, left hand; B95.62 Methicillin resistant Staphylococcus aureus infection as the cause of diseases classified elsewhere; L03.022 Acute lymphangitis of left finger; I10 Essential (primary) hypertension
CPT/HCPCS: 36415; 36569; 71045; 80048; 80053; 80202; 85025; 87040; 87071; 87075; 87186; 87205; 99284; J0360; J1100; J2001; J2250; J2270; J2405; J2543; J3370; J7030; J7050